=== PATIENT | female | born 1950 | race Caucasian/White ===

== ENCOUNTER 2017-02-04 16:48 | Outpatient (CLI) | payer MEDICARE | END 2017-02-04 16:49 | disposition critical access hospital (66) | DX: R00.2 Palpitations (principal); M54.2 Cervicalgia | CPT/HCPCS: A0425; A0427 ==

== ENCOUNTER 2017-02-04 17:10 | Observation (INO) | payer MEDICARE ==
[2017-02-04] MEDS ORDERED: diltiaZEM INJ 5 MG/ML VIAL ONE ×2 (17:36→19:13)
[2017-02-04] MEDS ORDERED: diltiaZEM INJ 5 MG/ML VIAL IVP STA ×2 (17:38→18:29)
[2017-02-04] MEDS ORDERED: cefTRIAXone 1 GM in SODIUM CHLORIDE 0.9% MINIBAG 100 ML IV STA (19:08)
[2017-02-04] MEDS ORDERED: diltiaZEM INJ 125 MG in DEXTROSE 5% 100 ML IV ONE ×2 (19:09→22:48)
[2017-02-04] MEDS ORDERED: cefTRIAXone 1 GM VIAL ONE (19:12)
[2017-02-04] MEDS ORDERED: SODIUM CHLORIDE FLUSH 0.9% 10 ML SYRINGE IVP PRN (20:11)
[2017-02-04] MEDS ORDERED: ONDANSETRON 4 MG/2 ML VIAL IVP PRN (20:11)
[2017-02-04] MEDS ORDERED: ACETAMINOPHEN 325 MG TABLET PO PRN (20:11)
[2017-02-04] MEDS ORDERED: ONDANSETRON ODT 4 MG TABLET TL PRN (20:11)
[2017-02-04] MEDS ORDERED: HYDROcod/ACETAM 5/325 MG TABLET PO PRN (20:11)
[2017-02-04] MEDS ORDERED: WARFARIN 5 MG TABLET PO SCH (20:15)
[2017-02-04] MEDS ORDERED: METOPROLOL SUCCINATE 25 MG TABLET PO SCH (21:00)
[2017-02-05] MEDS: SODIUM CHLORIDE FLUSH 0.9% 10 ML SYRINGE IVP SCH ×2 (00:35→06:52)
[2017-02-05] MEDS ORDERED: POLYETHYLENE GLYCOL 3350 17 GM PACKET PO SCH (09:00)
== END 2017-02-05 13:00 | disposition home or self-care (01) ==
DX: I48.91 Unspecified atrial fibrillation (principal); I48.92 Unspecified atrial flutter; Z85.41 Personal history of malignant neoplasm of cervix uteri; Z87.891 Personal history of nicotine dependence
CPT/HCPCS: 36415; 71020; 80053; 81001; 83690; 83880; 84443; 84484; 85025; 85610; 85730; 87086; 87640; 93005; 93010; 93306; 96365; 96366; 96375; 96376; 99284; 99285; A9270; G0378

== ENCOUNTER 2017-03-10 13:12 | Outpatient (CLI) | payer MEDICARE ==
--- NOTE | 2017-03-11 10:01 | Mammography Report ---
DIGITAL BILATERAL SCREENING MAMMOGRAM: 03/10/2017 CLINICAL HISTORY: A 66-year-old female in for routine screening mammogram. Patient does have a hist ory of breast cancer. Patient's mother had breast cancer at age 70. Patient's grandmother had breas t cancer at age 70. Patient's aunt had breast cancer at age 50. Patient has had no prior breast surgeries. COMPARISON: 07/17/2008, 10/08/2010, 07/01/2013. TECHNIQUE: Craniocaudad and oblique lateral views of each breast were obtained with [employer] full-fie ld digital mammography. FINDINGS: Breast parenchyma consists of scattered fibroglandular densities. No significant clusters of calcification are seen. No significant masses are noted. No change is se en. IMPRESSION: BREASTS APPEAR RADIOGRAPHICALLY BENIGN. BI-RADS 1, negative. RECOMMENDATION: Annual bilateral screening mammography. STANDARD QUALIFYING STATEMENTS 1. This examination was reviewed with the aid of Computer-Aided Detection (CAD). 2. A negative or benign imaging report should not delay biopsy if clinically suspicious findings are present. Consider surgical consultation if warranted. More than 5% of cancers are not identified by sirena peña. 3. Dense breasts may obscure an underlying neoplasm. JOB #: [id number] EXT JOB #:[id number]
== END 2017-03-10 13:13 | disposition home or self-care (01) ==
LOC: DI 13:12
PROVIDERS: ATTEND Nurse Practitioner Family
DX: Z12.31 Encounter for screening mammogram for malignant neoplasm of breast (principal); Z85.3 Personal history of malignant neoplasm of breast; Z80.3 Family history of malignant neoplasm of breast
CPT/HCPCS: 77067

== ENCOUNTER 2017-04-10 13:21 | Outpatient (CLI) | payer MEDICARE ==
--- NOTE | 2017-04-13 08:33 | DEXA Report ---
DEXA BONE MINERAL DENSITY SCAN: 04/10/2017 CLINICAL HISTORY: Postmenopausal. TECHNIQUE: Dual energy x-ray absorptiometry (DXA) was performed on a [employer] system. Regions measured are the AP spine, femoral neck, and, if needed, forearm. COMPARISON: None. In accordance with the International Society for Clinical Densitometry (ISCD) guidelines, data from previous exams may be reanalyzed using current recommendations and techniques. This is done to allow a more accurate basis for comparison with the current study. FINDINGS: The data for the lumbar spine is as follows: REGION BMD (g/cm/cm) T-SCORE Z-SCORE L1 1.019 -0.9 0.2 L2 1.048 -1.3 -0.2 L3 1.258 0.5 1.6 L4 1.192 -0.1 1.0 TOTAL 1.139 -0.3 0.8 NOTE: All evaluable vertebrae are used for classification. The data for the hip is as follows: REGION BMD (g/cm/cm) T-SCORE Z-SCORE Neck 0.793 -1.8 -0.5 TOTAL 0.804 -1.6 -0.6 NOTE: The femoral neck or total proximal femur, whichever is lowest, is used for classification. IMPRESSION: L1 THROUGH L4 T-SCORE IS -0.3. THIS IS WITHIN NORMAL LIMITS ACCORDING TO THE WORLD HEALTH ORGANIZATION GUIDELINES. THE FEMORAL NECK T-SCORE IS -1.8. THIS INDICATES OSTEOPENIA ACCORDING TO THE WORLD HEALTH ORGANIZATION GUIDELINES. TOTAL HIP T-SCORE IS -1.6. THIS INDICATES OSTEOPENIA ACCORDING TO THE WORLD HEALTH ORGANIZATION GUIDELINES. THE WHO CLASSIFICATION BASED ON THE INTERNATIONAL REFERENCE STANDARD IS OSTEOPENIA. THE PATIENT HAS INCREASED FRACTURE RISK. RECOMMENDATION: Patients with diagnosis of osteoporosis or osteopenia should have regular bone mineral density assessment. For those eligible for Medicare, routine testing is allowed once every 2 years. Testing frequency can be increased for patients who have rapidly progressing disease or for those who are receiving medical therapy to restore bone mass. COMMENT: World Health Organization (WHO) definitions for osteoporosis and osteopenia: NORMAL BMD: T-score at -1.0 or higher, fracture risk is low. OSTEOPENIA BMD: T-score between -1.0 and -2.5, fracture risk is increased. OSTEOPOROSIS BMD: T-score at -2.5 or lower, fracture risk high. National Osteoporosis Foundation recommends: 1. Obtain adequate dietary calcium (at least 1200 mg per day) and vitamin D (400 -800 international units per day). 2. Participate, as appropriate, in regular weightbearing and muscle- strengthening exercise. 3. Avoid tobacco use and reduce alcohol and caffeine intake. 4. For more detailed information see the website at www.NOF.org. MTDD
== END 2017-04-10 13:22 | disposition home or self-care (01) ==
LOC: DI 13:21
PROVIDERS: ATTEND Nurse Practitioner Family
DX: M85.88 Other specified disorders of bone density and structure, other site (principal)
CPT/HCPCS: 77080

== ENCOUNTER 2017-05-27 08:35 | Outpatient (CLI) | payer MEDICARE ==
[2017-05-27 11:22] LABS: ALBUMIN/GLOBULIN RATIO 1.2 (1.0-2.2); BUN - BLOOD UREA NITROGEN 16 mg/dL (6-20); CALCIUM 9.6 mg/dL (8.5-10.3); CARBON DIOXIDE - CO2 28 mmol/L (21-32); CHLORIDE 105 mmol/L (101-111); CHOL/HDL RATIO 3.9 (<4.4); CHOLESTEROL 278 mg/dL; CREATININE 0.7 mg/dL (0.4-1.0); GFR - MDRD 83 (>89); GLUCOSE 95 mg/dL (70-100); HDL CHOLESTEROL 72 mg/dL; LDL/HDL RATIO 2.7 (<4.4); POTASSIUM 4.1 mmol/L (3.5-5.0); SODIUM 140 mmol/L (135-145); TOTAL PROTEIN 7.4 g/dL (6.7-8.2); TRIGLYCERIDES 68 mg/dL; VLDL CHOLESTEROL 14 mg/dL
== END 2017-05-27 08:36 | disposition home or self-care (01) ==
LOC: LAB.F 08:35
PROVIDERS: ATTEND Nurse Practitioner Family
DX: Z13.1 Encounter for screening for diabetes mellitus (principal); Z79.01 Long term (current) use of anticoagulants; I48.0 Paroxysmal atrial fibrillation
CPT/HCPCS: 36415; 80053; 80061